=== PATIENT | female | born 1970 | race Caucasian/White ===

== ENCOUNTER → 2023-02-22 | Outpatient (CLI) | payer BC ==
--- NOTE | 2023-02-22 09:59 | XR ---
EXAMINATION TYPE: XR lumbosacral spine min 4V DATE OF EXAM: 02/22/2023 COMPARISON: None HISTORY: Left sciatica TECHNIQUE: 5 view lumbar spine FINDINGS: There are 5 lumbar-type vertebral bodies. Pedicles are intact. Scoliosis present with conve xity to the right centered at L3. Vertebral body heights are preserved. Some posterior disc space greyson rowing at L4-5 is present. Remaining disc heights are preserved. No spondylolytic defects are evident . MRI can be performed if additional evaluation would be of benefit. IMPRESSION: 1. Mild scoliosis with convexity to the right. 2. Mild posterior disc space narrowing L4-5.
== END | disposition home or self-care (01) ==
LOC: RADXRYALE 09:01
PROVIDERS: ATTEND Internal Medicine
DX: M51.36 Other intervertebral disc degeneration, lumbar region (principal); M41.86 Other forms of scoliosis, lumbar region; M54.32 Sciatica, left side
CPT/HCPCS: 72110

== ENCOUNTER 2023-09-15 19:02 | Emergency (ER) | payer BC ==
[2023-09-15 19:31] VITALS: RESP 18
[2023-09-15] MEDS ORDERED: KETOROLAC 15 MG/ML 1 ML VIAL IM STA (19:50)
[2023-09-15] MEDS ORDERED: ACETAMINOPHEN TAB 325 MG TAB PO STA (19:50)
[2023-09-15] MEDS ORDERED: LIDOCAINE 5% PATCH TOPICAL STA (19:50)
--- NOTE | 2023-09-15 19:51 | ED ---
General Adult HPI - General Chief complaint: Extremity Injury, Lower Stated complaint: Fall,L knee Pain/Post Hip Surgery Time Seen by Provider: 09/15/23 19:21 Source: patient, RN notes reviewed Mode of arrival: wheelchair Limitations: no limitations - History of Present Illness Initial comments: 53-year-old female presents emergency department chief complaint of left knee injury. She states that around 11 AM today she was walking down the stairs when she tripped causing her to twist her left knee and fall to the ground. She states that she has tried to ambulate but it is very painful to do so. Denies any other injury. Denies hitting her head. She reports that she took Motrin around 12PM. - Related Data Previous Rx's Medication Instructions Recorded Cyclobenzaprine [Flexeril] 10 mg PO TID PRN #15 tab 09/15/23 HYDROcodone/APAP 5-325MG [[place] 1 tab PO Q6HR PRN 3 Days #12 tab 09/15/23 5-325] Allergies Allergy/AdvReac Type Severity Reaction Status Date / Time No Known Allergies Allergy Verified 09/15/23 19:19 Review of Systems ROS Statement: Those systems with pertinent positive or pertinent negative responses have been documented in the HPI. ROS Other: All systems not noted in ROS Statement are negative. Past Medical History Additional Past Medical History / Comment(s): hypotension History of Any Multi-Drug Resistant Organisms: None Reported Past Surgical History: Section, Orthopedic Surgery Past Psychological History: No Psychological Hx Reported Smoking Status: Never smoker Past Alcohol Use History: None Reported Past Drug Use History: None Reported General Exam Limitations: no limitations General appearance: alert, in no apparent distress Head exam: Present: atraumatic, normocephalic, normal inspection Eye exam: Present: normal appearance, PERRL, EOMI. Absent: scleral icterus, conjunctival injection, periorbital swelling ENT exam: Present: normal exam, mucous membranes moist Respiratory exam: Present: normal lung sounds bilaterally. Absent: respiratory distress, wheezes, rales, rhonchi, stridor Cardiovascular Exam: Present: regular rate, normal rhythm, normal heart sounds. Absent: systolic murmur, diastolic murmur, rubs, gallop, clicks Extremities exam: Present: tenderness, normal capillary refill, other (DP and PT pulses 2+, swelling to left knee, decreased ROM at the left knee joint). Absent: full ROM Neurological exam: Present: alert, oriented X3 Psychiatric exam: Present: normal affect, normal mood Skin exam: Present: warm, dry, intact. Absent: normal color (ecchymosis to left knee) Course Vital Signs 09/15/23 09/15/23 19:16 19:26 Temperature 98.2 F 97.7 F Pulse Rate 113 H 99 Respiratory 18 18 Rate Blood Pressure 135/69 113/73 O2 Sat by Pulse 99 100 Oximetry Medical Decision Making - Medical Decision Making Was pt. sent in by a medical professional or institution (, PA, IMPORT/EXPORT CLERK, urgent care, hospital, or care home...) When possible be specific @ -No Did you speak to anyone other than the patient for history (EMS, parent, family, police, friend...)? What history was obtained from this source @ -No Did you review nursing and triage notes (agree or disagree)? Why? @ -I reviewed and agree with nursing and triage notes Were old charts reviewed (outside hosp., previous admission, EMS record, old EKG, old radiological studies, urgent care reports/EKG's, care home records)? Report findings @ -No old charts were reviewed Differential Diagnosis (chest pain, altered mental status, abdominal pain women, abdominal pain men, vaginal bleeding, weakness, fever, dyspnea, syncope, headache, dizziness, GI bleed, back pain, seizure, CVA, palpatations, mental health, musculoskeletal)? @ -Differential Musculoskeletal Muscular strain, contusion, ligament sprain, fracture, arthritis, septic arthritis, bursitis, cellulitis, muscle spasm, nerve compression, DVT, arterial occlusion, herpes zoster, electrolyte abnormality, tumor.... This is not meant to be in all inclusive list EKG interpreted by me (3pts min.). @ -none X-rays interpreted by me (1pt min.). @ -X-ray left hip shows no evidence of acute fracture, X-ray left knee shows suspected large hemarthrosis, no acute fracture clearly seen CT interpreted by me (1pt min.). @ -CT left knee shows nondisplaced distal femur fracture within the intercondylar notch, possible ACL tear U/S interpreted by me (1pt. min.). @ -None done What testing was considered but not performed or refused? (CT, X-rays, U/S, l abs)? Why? @ -None What meds were considered but not given or refused? Why? @ -None Did you discuss the management of the patient with other professionals (professionals i.e. BRYAN Bar, IMPORT/EXPORT CLERK, lab, RT, psych nurse, medical social consultant, speed operator, teacher, national insurance officer, social work case manager)? Give summary @ -Case was discussed with Andrew Zhu PA-C with [facility] who recommends knee immobilizer, nonweightbearing, follow-up with orthopedics in the a.m. Was smoking cessation discussed for >3mins.? @ -No Was critical care preformed (if so, how long)? @ -No Were there social determinants of health that impacted care today? How? (Homelessness, low income, unemployed, alcoholism, drug addiction, transportation, low edu. Level, literacy, decrease access to med. care, residential, rehab)? @ -No Was there de-escalation of care discussed even if they declined (Discuss DNR or withdrawal of care, Hospice)? DNR status @ -No What co-morbidities impacted this encounter? (DM, HTN, Smoking, COPD, CAD, Cancer, CVA, ARF, Chemo, Hep., AIDS, mental health diagnosis, sleep apnea, morbid obesity)? @ -None Was patient admitted / discharged? Hospital course, mention meds given and route, prescriptions, significant lab abnormalities, going to OR and other pertinent info. @ -discharged. Patient presented to the emergency department for chief complaint of left knee pain following a twist and fall injury. Patient states she is unable to bear weight. NVI. XR of the knee obtained showed possible large hemarthrosis, radiologist recommended CT. CT obtained which shows nondisplaced distal femur fracture within the intercondylar notch and possible ACL tear. These findings were discussed with Andrew Zhu PA-C who recommends knee immobilizer, non weight bearing and follow up in the office tomorrow morning. Patient advised on findings and agreeable with plan. Patient stable at time of discharge. Case discussed with Dr. Palacios Undiagnosed new problem with uncertain prognosis? @ -No Drug Therapy requiring intensive monitoring for toxicity (Heparin, Nitro, Insulin, Cardizem)? @ -No Were any procedures done? @ -No Diagnosis/symptom? @ -distal intercondylar notch femur fracture Acute, or Chronic, or Acute on Chronic? @ -acute Uncomplicated (without systemic symptoms) or Complicated (systemic symptoms)? @ -uncomplicated Side effects of treatment? @ -No Exacerbation, Progression, or Severe Exacerbation? @ -No Poses a threat to life or bodily function? How? (Chest pain, [place], [place], pneumonia, PE, COPD, DKA, ARF, appy, cholecystitis, CVA, Diverticulitis, Homicidal, Isabela cidal, threat to staff... and all critical care pts) @ -No Disposition Clinical Impression: Intercondylar fracture of femur Disposition: HOME SELF-CARE Condition: Stable Instructions (If sedation given, give patient instructions): Leg Fracture (ED) Additional Instructions: Please utilize the knee immobilizer and remain non-weight bearing. Follow up with orthopedics in the morning. Return to the emergency department for new or worsening symptoms. Prescriptions: Cyclobenzaprine [Flexeril] 10 mg PO TID PRN #15 tab PRN Reason: Muscle Spasm HYDROcodone/APAP 5-325MG [[place] 5-325] 1 tab PO Q6HR PRN 3 Days #12 tab PRN Reason: Pain Is patient prescribed a controlled substance at d/c from ED?: Yes If prescribed controlled substance>3 days was MAPS reviewed?: Prescribed <3 Days Referrals: Lilibeth Jasso MD [Primary Care Provider] - 1-2 days Jean Marie Mccain DO [Doctor of Osteopathic Medicine] - 1-2 days
--- NOTE | 2023-09-15 21:37 | XR ---
EXAMINATION TYPE: XR Hip Complete LT DATE OF EXAM: 09/15/2023 CLINICAL HISTORY: Fall injury with pain TECHNIQUE: AP and frogleg views of the left hip are obtained. COMPARISON: None. FINDINGS: There is no acute fracture/dislocation evident in the left hip. Metallic prosthesis is sat isfactory in position. The overlying soft tissue appears unremarkable. IMPRESSION: There is no acute fracture or dislocation in the left hip.
--- NOTE | 2023-09-15 21:39 | XR ---
EXAMINATION TYPE: XR knee complete LT DATE OF EXAM: 09/15/2023 CLINICAL HISTORY: Fall injury with pain TECHNIQUE: Three views of the left knee are obtained. COMPARISON: None. FINDINGS: Osseous structures are demineralized which is noted to lower radiographic sensitivity. The re is a large suprapatellar joint effusion with fluid fluid level. No acute displaced fracture clearl y seen. Tricompartmental joint spaces are preserved. IMPRESSION: There is large hemarthrosis suspected. No acute displaced fracture clearly seen. Conside r CT study to exclude nondisplaced intra-articular fracture.
[2023-09-15] MEDS ORDERED: HYDROmorphone 1 MG/ML 1 ML SYRINGE IM STA (21:45)
--- NOTE | 2023-09-15 22:39 | CT ---
EXAM: CT Left Lower Extremity Without Intravenous Contrast, Knee CLINICAL HISTORY: ITS.REASON CT Reason: fall, pain TECHNIQUE: Axial computed tomography images of the left knee without intravenous contrast. CTDI is 3.7 mGy and DLP is 190.6 mGy-cm. This CT exam was performed using one or more of the following dose reduction techniques: automated exposure control, adjustment of the mA and/or kV according to patient size, and/or use of iterative reconstruction technique. COMPARISON: No relevant prior studies available. FINDINGS: Nondisplaced distal femoral fracture within the intercondylar notch. No articular offset at the fracture site. Normal alignment. Large lipohemarthrosis. The ACL is indistinct, potentially torn. PCL appears intact. Extensor mechanism intact. Menisci and collateral ligaments would be better evaluated by MRI. IMPRESSION: 1. Nondisplaced distal femoral fracture within the intercondylar notch. 2. Suspected ACL tear. Consider MRI for further evaluation.
[2023-09-15] MEDS ORDERED: CYCLOBENZAPRINE 10MG STARTER 3 TAB BTL PO STA (23:38)
[2023-09-15] MEDS ORDERED: ACET/COD 300 MG/30 MG STARTER PACK 6 TAB BTL PO STA (23:38)
[2023-09-15] MEDS ORDERED: IBUPROFEN 600 MG STARTER PACK 4 TAB BTL PO STA (23:38)
[2023-09-16 00:51] VITALS: BP 122/69; PULSE 68; TEMP 98.4
== END 2023-09-16 00:28 | disposition home or self-care (01) ==
LOC: EC 19:02
DX: S72.412A Displaced unspecified condyle fracture of lower end of left femur, initial encounter for closed fracture (principal); W01.0XXA Fall on same level from slipping, tripping and stumbling without subsequent striking against object, initial encounter
CPT/HCPCS: 73502; 73562; 73700; 99284; 96372 ×2; J1170; J1885